=== PATIENT | female | born 1990 | race Caucasian/White ===

== ENCOUNTER 2019-08-16 01:58 | Observation (INO) ==
[2019-08-16] MEDS ORDERED: Ondansetron 4 MG/2 ML VIAL IVP ONE (03:38)
[2019-08-16] MEDS ORDERED: *HR* HYDROmorphone (PF) 1 MG/ML SYRINGE IVP STA (03:38)
[2019-08-16 03:52] LABS: Basophils # 0.1 K/mcL (0.0-0.2); Basophils % 0.5 %; Bilirubin,Urine Negative (Negative); Blood,Urine Negative (Negative); Clarity,Urine Clear (Clear); Color,Urine Yellow (Yellow); Eosinophils # 0.2 K/mcL (0.0-0.6); Eosinophils % 1.1 %; Glucose,Urine (UA) Normal (Normal); Hematocrit 41.5 % (35.3-44.9); Hemoglobin 14.3 g/dL (11.5-15.4); Immature Granulocytes % 0.5 % (0-4); Ketones,Urine Negative (Negative); Leukocyte Esterase,Urine Negative (Negative); Lymphocytes # 2.6 K/mcL (0.6-4.6); Lymphocytes % 18.1 %; Mean Corpuscular HGB Conc 34.5 g/dL (31.6-35.5); Mean Corpuscular Hemoglobin 28.8 pg (28.0-33.3); Mean Corpuscular Volume 83.7 fL (83.0-100.0); Mean Platelet Volume 10.2 fL (9.4-12.4); Monocytes # 0.7 K/mcL (0.0-1.3); Neutrophils # 10.5 K/mcL (1.6-8.9); Nitrite,Urine Negative (Negative); Platelet Count 436 K/mcL (140-400); Protein,Urine Negative (Neg-Trace); Red Blood Count 4.96 M/mcL (3.82-4.97); Red Cell Distribution Width 12.4 % (11.5-14.5); Segmented Neutrophils % 74.8 %; Specific Gravity,Urine 1.021 (1.010-1.025); Urobilinogen,Urine Normal (Normal); White Blood Count 14.1 K/mcL (4.3-11.1)
[2019-08-16 03:57] LABS: INR 1.1
[2019-08-16 04:00] LABS: Activated Partial Thrombo Time 29.7 Seconds (26.0-36.0)
[2019-08-16] MEDS: 0.9 % Sodium Chloride 1,000 ML IVC SCH ×2 (04:06→14:03)
[2019-08-16 04:11] LABS: BUN/Creatinine Ratio 16 (6-26); Blood Urea Nitrogen 12 mg/dL (6-20); Carbon Dioxide 25 mEq/L (23-29); Chloride 106 mEq/L (98-107); Glucose 116 mg/dL (70-105); Osmolality,Calculated 289 (280-300); Potassium 4.1 mEq/L (3.5-5.1); Sodium 139 mEq/L (136-145); eGFR For African Americans > 60 (> 60); eGFR For Non-African Americans > 60 (> 60)
[2019-08-16] MEDS: Ondansetron 4 MG/2 ML VIAL IVP PRN ×2 (06:00→14:42)
[2019-08-16] MEDS ORDERED: *HR* Midazolam HCl 2 MG/2 ML VIAL ONE ×2 (16:03→19:40)
[2019-08-16] MEDS ORDERED: *HR* FentaNYL (PF) 100 MCG/2 ML VIAL ONE ×2 (16:03→19:40)
[2019-08-16] MEDS ORDERED: *HR* Propofol 200 MG/20 ML VIAL IVP ONE ×2 (16:03→19:40)
[2019-08-16] MEDS ORDERED: *HR* OxyCODONE Immed Rel 5 MG TABLET PO PRN (16:44)
[2019-08-16] MEDS ORDERED: Morphine Sulfate 2 MG/ML SYRINGE IVP PRN (16:44)
[2019-08-16] MEDS ORDERED: Ondansetron 4 MG/2 ML VIAL ONE ×2 (17:49→19:40)
[2019-08-16] MEDS ORDERED: Dexamethasone 4 MG/ML VIAL ONE (19:40)
[2019-08-16] MEDS ORDERED: Lidocaine -MPF 4% 5 ML AMPUL ONE (19:40)
[2019-08-16] MEDS ORDERED: *HR* Rocuronium Bromide 50 MG/5 ML VIAL ONE (19:40)
[2019-08-16] MEDS ORDERED: Lidocaine -MPF 2% 2 ML VIAL ONE (19:40)
[2019-08-16] MEDS ORDERED: Lidocaine HCL 4 ML Topical Solution (Laryng-O-Jet Kit Sterile Pak) TP ONE (19:53)
[2019-08-16] MEDS ORDERED: *HR* OxyCODONE/APAP 5/325 TABLET PO PRN (21:08)
[2019-08-16 21:43] VITALS: BP 103/73
== END 2019-08-16 21:45 | disposition home or self-care (01) ==
LOC: 3ANU 01:58 → EMEROOARM 01:58 → 3ANU 04:53
PROVIDERS: ADMIT Surgery; ATTEND Surgery